=== PATIENT | male | born 1935 | race Caucasian/White ===

== ENCOUNTER 2023-02-06 03:52 | Inpatient (IN) | payer BC ==
[2023-02-06 04:02] VITALS: BMI 28.8
[2023-02-06] MEDS ORDERED: ACETAMINOPHEN 1000 MG/100 ML BAG IVPB ONE (04:54)
[2023-02-06] MEDS ORDERED: ACETAMINOPHEN INJECTION 100 ML IVPB ONE (05:14)
[2023-02-06 06:12] LABS: BASO % 0.6 % (0-2.0); HEMATOCRIT 27.9 % (35.4-49); HEMOGLOBIN 9.5 GM/dL (11.7-16.9); LYMPH % 8.1 % (8-40); MCH 34.5 pg (25.7-33.7); MCHC 34.1 g/dl (32.0-35.9); MEAN CELL VOLUME 101.1 fl (80-96); MEAN PLT VOLUME 9.6 fl (7.5-11.1); NEUT % 78.3 % (42.8-82.8); PLATELET COUNT 133 10^3/uL (134-434); RBC 2.76 M/mm3 (4.00-5.60); RDW 24.7 % (11.9-15.9); WHITE BLOOD COUNT 6.9 K/mm3 (4.0-10.0)
[2023-02-06 06:26] LABS: INR 1.53 (0.83-1.09); PROTHROMBIN TIME (PATIENT) 17.7 SEC (9.7-13.0)
[2023-02-06 06:28] LABS: CHLORIDE 104 mmol/L (98-107); POTASSIUM 4.5 mmol/L (3.5-5.1); SODIUM 139 mmol/L (136-145)
[2023-02-06 06:29] LABS: ACTIVATED PTT 36.7 SECONDS (25.2-36.5)
[2023-02-06 06:30] LABS: ANION GAP 6 MMOL/L (8-16); BLOOD UREA NITROGEN 33.3 mg/dL (7-18); CALCIUM 8.5 mg/dL (8.5-10.1); CO2 29 mmol/L (21-32); GLUCOSE,RANDOM 107 mg/dL (74-106)
[2023-02-06 06:33] LABS: CREATININE 1.3 mg/dL (0.55-1.3); SGOT/AST 26 U/L (15-37)
[2023-02-06 06:36] LABS: ALK PHOS 252 U/L (45-117); BILIRUBIN,TOTAL 1.4 mg/dL (0.2-1); SGPT/ALT 18 U/L (13-61); TOT PROT 7.6 g/dl (6.4-8.2)
[2023-02-06] MEDS ORDERED: VANCOMYCIN 1 GM in D5W (PRE-DOCKED) 1,000 MG/250 ML (RESTRICTED TO ID ONLY IVPB ONE (07:09)
[2023-02-06] MEDS ORDERED: PIPERACILLIN/TAZOB 4.5 GM 4.5 GM in DEXTROSE 5%-WATER 100 ML IVPB ONE (07:10)
[2023-02-06] MEDS ORDERED: VANCOMYCIN/WATER FOR INJ (PEG) 1,000 MG/200 ML BAG IVPB ONE (08:18)
[2023-02-06] MEDS ORDERED: PIPERACILLIN/TAZOB 4.5 GM 4.5 GM/100 ML BAG IVPB ONE (08:18)
[2023-02-06 08:35] LABS: PH,URINE 7.5 (5.0-8.0); URINE APPEARANCE TURBID; URINE BILIRUBIN NEGATIVE (NEGATIVE); URINE COLOR RED; URINE GLUCOSE (UA) NEGATIVE (NEGATIVE); URINE KETONE NEGATIVE (NEGATIVE); URINE PROTEIN 3+ (NEGATIVE)
[2023-02-06 08:36] LABS: URINE BACTERIA 2+ /uL (0-1359); URINE LEUK ESTERASE 3+ (NEGATIVE); URINE NITRITE NEGATIVE (NEGATIVE); URINE RBC 100-200 /uL (0-23.9); URINE WBC 50-100 /uL (0-25.8)
[2023-02-06] MEDS ORDERED: LIDOCAINE HCL 2% JELLY 10 ML CARTRIDGE UR ONE (08:52)
[2023-02-06 08:54] LABS: ANISOCYTOSIS 1+; MACROCYTOSIS 1+
[2023-02-06] MEDS ORDERED: LIDOCAINE HCL 2% JELLY 10 ML CARTRIDGE ONE (08:56)
[2023-02-06 09:59] LABS: BASO % 0.5 % (0-2.0); EOS % 1.2 % (0-4.5); HEMATOCRIT 26.8 % (35.4-49); HEMOGLOBIN 9.1 GM/dL (11.7-16.9); LYMPH % 10.8 % (8-40); MCH 34.4 pg (25.7-33.7); MCHC 33.9 g/dl (32.0-35.9); MEAN CELL VOLUME 101.5 fl (80-96); MEAN PLT VOLUME 8.7 fl (7.5-11.1); MONO % 13.3 % (3.8-10.2); NEUT % 74.2 % (42.8-82.8); PLATELET COUNT 121 10^3/uL (134-434); RBC 2.64 M/mm3 (4.00-5.60); RDW 24.7 % (11.9-15.9)
[2023-02-06] MEDS ORDERED: LACTATED RINGERS SOLUTION 1000 ML INFUS.BAG IV ONE (10:03)
[2023-02-06] MEDS: LEVOTHYROXINE NA 88 MCG TABLET (FP) PO SCH (10:49)
[2023-02-06] MEDS: metoPROLOL SUCCINATE 25 MG TAB.SR.24H (FP) PO SCH (10:49)
[2023-02-06 11:28] LABS: CHOLESTEROL 97 mg/dL (50-200)
[2023-02-06 11:30] LABS: LDL CHOLESTEROL (ONLY SJRH) 50 mg/dL (5-100)
[2023-02-06 11:31] LABS: HDL CHOLESTEROL 44 mg/dL (40-60)
[2023-02-06 11:32] LABS: N-TERMINAL BNP 5357.8 pg/ml (5-450)
[2023-02-06] MEDS ORDERED: LACTATED RINGERS SOLUTION 1,000 ML/1,000 ML INFUS.BAG IV SCH (11:59)
[2023-02-06] MEDS: ALLOPURINOL 300 MG TABLET (FP) PO SCH (13:21)
[2023-02-06] MEDS: GABAPENTIN 100 MG CAPSULE PO SCH ×2 (14:35→21:16)
[2023-02-06] MEDS ORDERED: CEFEPIME 2 GM in DEXTROSE 5%-WATER - 100 ML IVPB SCH (18:00)
[2023-02-06] MEDS: PIPERACILLIN/TAZOB 4.5 GM 4.5 GM in DEXTROSE 5%-WATER 100 ML IVPB SCH (18:31)
[2023-02-06] MEDS ORDERED: VANCOMYCIN HCL 1,500 MG in DEXTROSE 5%-WATER - 250 ML IVPB SCH (22:00)
[2023-02-06] MEDS ORDERED: VANCOMYCIN PREMIX 1.5 GM 1,500 MG/300 ML BAG IVPB SCH (22:00)
[2023-02-06] MEDS ORDERED: ATORVASTATIN CA 10 MG TABLET (FP) PO SCH (22:00)
[2023-02-07] MEDS: PIPERACILLIN/TAZOB 4.5 GM 4.5 GM in DEXTROSE 5%-WATER 100 ML IVPB SCH ×3 (02:03→19:02)
[2023-02-07] MEDS: PANTOPRAZOLE 40 MG TABLET PO SCH ×2 (02:03→09:18)
[2023-02-07] MEDS ORDERED: ACETAMINOPHEN 1000 MG/100 ML BAG IVPB ONE ×2 (05:54→13:30)
[2023-02-07] MEDS ORDERED: LIDOCAINE HCL 2% JELLY 10 ML CARTRIDGE UR ONE (06:34)
[2023-02-07] MEDS: LEVOTHYROXINE NA 88 MCG TABLET (FP) PO SCH (07:00)
[2023-02-07] MEDS: GABAPENTIN 100 MG CAPSULE PO SCH ×3 (07:00→22:17)
[2023-02-07] MEDS ORDERED: morphine CARPU-JECT 2 MG/1 ML DISP.SYRIN IM ONE (08:03)
[2023-02-07] MEDS: metoPROLOL SUCCINATE 25 MG TAB.SR.24H (FP) PO SCH (09:19)
[2023-02-07] MEDS: ALLOPURINOL 300 MG TABLET (FP) PO SCH (09:22)
[2023-02-07] MEDS ORDERED: CEFEPIME 2 GM in DEXTROSE 5%-WATER - 100 ML IVPB SCH (10:00)
[2023-02-07] MEDS ORDERED: LIDOCAINE HCL 2% JELLY 6 ML TP ONE (10:00)
[2023-02-07] MEDS ORDERED: ROCURONIUM BROMIDE 50 MG/5 ML SYRINGE ONE (12:10)
[2023-02-07] MEDS ORDERED: PROPOFOL 20 ML ONE (12:10)
[2023-02-07] MEDS ORDERED: SUCCINYLCHOLINE CHLORIDE 200 MG/10 ML SYRINGE ONE (12:10)
[2023-02-07] MEDS ORDERED: LIDOCAINE HCL/PF 2% SDV 5ML VIAL ONE (12:10)
[2023-02-07 12:20] LABS: BASO % 0.3 % (0-2.0); EOS % 0.4 % (0-4.5); HEMATOCRIT 25.3 % (35.4-49); HEMOGLOBIN 8.5 GM/dL (11.7-16.9); MCH 34.5 pg (25.7-33.7); MCHC 33.7 g/dl (32.0-35.9); MEAN CELL VOLUME 102.1 fl (80-96); MEAN PLT VOLUME 8.3 fl (7.5-11.1); MONO % 12.4 % (3.8-10.2); NEUT % 78.9 % (42.8-82.8); PLATELET COUNT 113 10^3/uL (134-434); RBC 2.48 M/mm3 (4.00-5.60); RDW 24.2 % (11.9-15.9)
[2023-02-07 12:46] LABS: POTASSIUM 4.1 mmol/L (3.5-5.1)
[2023-02-07 12:53] LABS: ALBUMIN 2.8 g/dl (3.4-5.0); BLOOD UREA NITROGEN 40.5 mg/dL (7-18); CALCIUM 8.1 mg/dL (8.5-10.1); MAGNESIUM 2.1 mg/dL (1.8-2.4)
[2023-02-07 12:56] LABS: CREATININE 2.2 mg/dL (0.55-1.3); PHOSPHOROUS 4.2 mg/dL (2.5-4.9)
[2023-02-07 12:58] LABS: BILIRUBIN,TOTAL 1.7 mg/dL (0.2-1); TOT PROT 7.1 g/dl (6.4-8.2)
[2023-02-07] MEDS ORDERED: ONDANSETRON 4 MG/2 ML VIAL IVPUSH PRN (13:29)
[2023-02-07] MEDS ORDERED: ACETAMINOPHEN INJECTION 100 ML IVPB ONE (14:37)
[2023-02-07] MEDS: LACTATED RINGERS SOLUTION 1,000 ML IV SCH (15:07)
[2023-02-07] MEDS ORDERED: FUROSEMIDE 40 MG/4 ML INJECTABLE VIAL ONE (15:44)
[2023-02-07] MEDS ORDERED: FUROSEMIDE 10 MG/1 ML VIAL (4 ML VIAL) IVPUSH ONE (15:50)
[2023-02-07] MEDS ORDERED: FUROSEMIDE 40 MG/4 ML INJECTABLE VIAL IVPUSH ONE (15:53)
[2023-02-07 16:05] LABS: HEMATOCRIT 22.1 % (35.4-49); HEMOGLOBIN 7.1 GM/dL (11.7-16.9); MCH 33.3 pg (25.7-33.7); MCHC 32.3 g/dl (32.0-35.9); MEAN PLT VOLUME 8.1 fl (7.5-11.1); PLATELET COUNT 111 10^3/uL (134-434); RBC 2.14 M/mm3 (4.00-5.60); RDW 24.8 % (11.9-15.9); WHITE BLOOD COUNT 8.9 K/mm3 (4.0-10.0)
[2023-02-07] MEDS ORDERED: ACETAMINOPHEN 325 MG TABLET (FP) ONE (20:21)
[2023-02-07 21:58] LABS: HEMATOCRIT 22.6 % (35.4-49); HEMOGLOBIN 7.5 GM/dL (11.7-16.9); MCH 33.7 pg (25.7-33.7); MCHC 33.3 g/dl (32.0-35.9); MEAN CELL VOLUME 101.2 fl (80-96); PLATELET COUNT 99 10^3/uL (134-434); RBC 2.24 M/mm3 (4.00-5.60); RDW 24.1 % (11.9-15.9); WHITE BLOOD COUNT 6.8 K/mm3 (4.0-10.0)
[2023-02-07] MEDS: ATORVASTATIN CA 10 MG TABLET (FP) PO SCH (22:17)
[2023-02-08] MEDS: PIPERACILLIN/TAZOB 4.5 GM 4.5 GM in DEXTROSE 5%-WATER 100 ML IVPB SCH ×2 (01:21→09:38)
[2023-02-08] MEDS: GABAPENTIN 100 MG CAPSULE PO SCH ×3 (05:40→22:11)
[2023-02-08] MEDS: LEVOTHYROXINE NA 88 MCG TABLET (FP) PO SCH (06:01)
[2023-02-08 08:14] LABS: BASO % 0.5 % (0-2.0); EOS % 2.2 % (0-4.5); HEMATOCRIT 26.3 % (35.4-49); HEMOGLOBIN 8.9 GM/dL (11.7-16.9); LYMPH % 14.6 % (8-40); MCHC 33.9 g/dl (32.0-35.9); MEAN CELL VOLUME 100.4 fl (80-96); MEAN PLT VOLUME 9.5 fl (7.5-11.1); MONO % 13.9 % (3.8-10.2); NEUT % 68.8 % (42.8-82.8); PLATELET COUNT 107 10^3/uL (134-434); RBC 2.62 M/mm3 (4.00-5.60); RDW 24.7 % (11.9-15.9); WHITE BLOOD COUNT 5.9 K/mm3 (4.0-10.0)
[2023-02-08] MEDS ORDERED: ACETAMINOPHEN 1000 MG/100 ML BAG IVPB PRN (08:19)
[2023-02-08 08:23] LABS: POTASSIUM 4.2 mmol/L (3.5-5.1)
[2023-02-08 08:26] LABS: ALBUMIN 2.4 g/dl (3.4-5.0); CALCIUM 7.8 mg/dL (8.5-10.1)
[2023-02-08 08:27] LABS: BLOOD UREA NITROGEN 45.1 mg/dL (7-18); MAGNESIUM 1.9 mg/dL (1.8-2.4)
[2023-02-08 08:29] LABS: CREATININE 2.5 mg/dL (0.55-1.3)
[2023-02-08 08:31] LABS: BILIRUBIN,TOTAL 2.3 mg/dL (0.2-1); TOT PROT 6.6 g/dl (6.4-8.2)
[2023-02-08] MEDS: ACETAMINOPHEN 500 MG TABLET (FP) PO PRN ×2 (09:35→23:36)
[2023-02-08] MEDS: metoPROLOL SUCCINATE 25 MG TAB.SR.24H (FP) PO SCH (09:37)
[2023-02-08] MEDS: ALLOPURINOL 300 MG TABLET (FP) PO SCH (09:37)
[2023-02-08] MEDS: PANTOPRAZOLE 40 MG TABLET PO SCH (09:37)
[2023-02-08] MEDS: LACTATED RINGERS SOLUTION 1,000 ML IV SCH (13:52)
[2023-02-08] MEDS: PIPERACILLIN/TAZOB 2.25 GM 2.25 GM in DEXTROSE 5%-WATER - 50 ML IVPB SCH (17:32)
[2023-02-08 18:45] LABS: BASO % 0.5 % (0-2.0); EOS % 3.4 % (0-4.5); HEMATOCRIT 23.8 % (35.4-49); HEMOGLOBIN 7.8 GM/dL (11.7-16.9); LYMPH % 12.9 % (8-40); MCH 33.1 pg (25.7-33.7); MCHC 32.7 g/dl (32.0-35.9); MEAN CELL VOLUME 101.1 fl (80-96); MEAN PLT VOLUME 8.4 fl (7.5-11.1); NEUT % 73.2 % (42.8-82.8); PLATELET COUNT 112 10^3/uL (134-434); RBC 2.36 M/mm3 (4.00-5.60); RDW 24.9 % (11.9-15.9); WHITE BLOOD COUNT 5.3 K/mm3 (4.0-10.0)
[2023-02-08] MEDS: ATORVASTATIN CA 10 MG TABLET (FP) PO SCH (22:11)
[2023-02-09] MEDS: PIPERACILLIN/TAZOB 2.25 GM 2.25 GM in DEXTROSE 5%-WATER - 50 ML IVPB SCH ×3 (01:16→17:43)
[2023-02-09] MEDS: LEVOTHYROXINE NA 88 MCG TABLET (FP) PO SCH (06:30)
[2023-02-09] MEDS: GABAPENTIN 100 MG CAPSULE PO SCH ×3 (06:30→21:32)
[2023-02-09 08:58] LABS: BASO % 0.9 % (0-2.0); EOS % 4.5 % (0-4.5); HEMATOCRIT 21.8 % (35.4-49); HEMOGLOBIN 7.2 GM/dL (11.7-16.9); LYMPH % 21.1 % (8-40); MCH 32.6 pg (25.7-33.7); MCHC 32.8 g/dl (32.0-35.9); MEAN CELL VOLUME 99.3 fl (80-96); MEAN PLT VOLUME 8.7 fl (7.5-11.1); MONO % 10.4 % (3.8-10.2); NEUT % 63.1 % (42.8-82.8); PLATELET COUNT 108 10^3/uL (134-434); RDW 24.3 % (11.9-15.9); WHITE BLOOD COUNT 3.9 K/mm3 (4.0-10.0)
[2023-02-09 09:07] LABS: POTASSIUM 3.8 mmol/L (3.5-5.1)
[2023-02-09 09:10] LABS: ALBUMIN 2.4 g/dl (3.4-5.0)
[2023-02-09 09:12] LABS: BLOOD UREA NITROGEN 45.3 mg/dL (7-18); MAGNESIUM 2.1 mg/dL (1.8-2.4)
[2023-02-09 09:13] LABS: CREATININE 2.1 mg/dL (0.55-1.3)
[2023-02-09 09:15] LABS: BILIRUBIN,TOTAL 0.9 mg/dL (0.2-1); TOT PROT 6.3 g/dl (6.4-8.2)
[2023-02-09 10:06] LABS: ANISOCYTOSIS 1+; MACROCYTOSIS 1+
[2023-02-09] MEDS ORDERED: FUROSEMIDE 40 MG/4 ML INJECTABLE VIAL IVPUSH ONE (10:31)
[2023-02-09] MEDS: PANTOPRAZOLE 40 MG TABLET PO SCH (11:23)
[2023-02-09] MEDS: ALLOPURINOL 300 MG TABLET (FP) PO SCH (11:25)
[2023-02-09] MEDS: metoPROLOL SUCCINATE 25 MG TAB.SR.24H (FP) PO SCH (11:38)
[2023-02-09] MEDS: ACETAMINOPHEN 500 MG TABLET (FP) PO PRN ×2 (13:16→21:33)
[2023-02-09] MEDS: LACTATED RINGERS SOLUTION 1,000 ML IV SCH (15:57)
[2023-02-09] MEDS: oxyCODONE HCL 5 MG TABLET PO PRN (18:25)
[2023-02-09] MEDS: ATORVASTATIN CA 10 MG TABLET (FP) PO SCH (21:32)
[2023-02-09] MEDS: DOCUSATE SODIUM 100 MG CAPSULE (FP) PO SCH (21:32)
[2023-02-10] MEDS: oxyCODONE HCL 5 MG TABLET PO PRN ×2 (00:27→16:25)
[2023-02-10] MEDS: PIPERACILLIN/TAZOB 2.25 GM 2.25 GM in DEXTROSE 5%-WATER - 50 ML IVPB SCH ×3 (02:36→18:20)
[2023-02-10] MEDS: ACETAMINOPHEN 500 MG TABLET (FP) PO PRN (05:19)
[2023-02-10] MEDS: DOCUSATE SODIUM 100 MG CAPSULE (FP) PO SCH ×3 (05:19→22:19)
[2023-02-10] MEDS: GABAPENTIN 100 MG CAPSULE PO SCH ×3 (05:19→22:20)
[2023-02-10] MEDS: LEVOTHYROXINE NA 88 MCG TABLET (FP) PO SCH (05:59)
[2023-02-10 07:46] LABS: BASO % 1.2 % (0-2.0); EOS % 5.3 % (0-4.5); HEMATOCRIT 25.4 % (35.4-49); HEMOGLOBIN 8.8 GM/dL (11.7-16.9); LYMPH % 25.5 % (8-40); MCH 33.8 pg (25.7-33.7); MCHC 34.6 g/dl (32.0-35.9); MEAN CELL VOLUME 97.7 fl (80-96); MEAN PLT VOLUME 8.8 fl (7.5-11.1); MONO % 11.6 % (3.8-10.2); NEUT % 56.4 % (42.8-82.8); PLATELET COUNT 116 10^3/uL (134-434); WHITE BLOOD COUNT 3.6 K/mm3 (4.0-10.0)
[2023-02-10 08:08] LABS: POTASSIUM 3.4 mmol/L (3.5-5.1)
[2023-02-10 08:10] LABS: ALBUMIN 2.7 g/dl (3.4-5.0); BLOOD UREA NITROGEN 42.8 mg/dL (7-18); CALCIUM 8.1 mg/dL (8.5-10.1)
[2023-02-10 08:13] LABS: CREATININE 1.7 mg/dL (0.55-1.3)
[2023-02-10 08:15] LABS: BILIRUBIN,TOTAL 1.1 mg/dL (0.2-1)
[2023-02-10] MEDS: PANTOPRAZOLE 40 MG TABLET PO SCH (09:22)
[2023-02-10] MEDS: metoPROLOL SUCCINATE 25 MG TAB.SR.24H (FP) PO SCH (09:23)
[2023-02-10] MEDS: ALLOPURINOL 300 MG TABLET (FP) PO SCH (10:21)
[2023-02-10] MEDS ORDERED: POTASSIUM CHLORIDE ORAL LIQUID 20 MEQ/15 ML PO ONE (13:45)
[2023-02-10] MEDS: ATORVASTATIN CA 10 MG TABLET (FP) PO SCH (22:19)
[2023-02-11] MEDS: oxyCODONE HCL 5 MG TABLET PO PRN ×3 (00:57→22:01)
[2023-02-11] MEDS: PIPERACILLIN/TAZOB 2.25 GM 2.25 GM in DEXTROSE 5%-WATER - 50 ML IVPB SCH ×3 (02:12→17:21)
[2023-02-11] MEDS: LEVOTHYROXINE NA 88 MCG TABLET (FP) PO SCH (06:17)
[2023-02-11] MEDS: DOCUSATE SODIUM 100 MG CAPSULE (FP) PO SCH ×3 (06:17→22:02)
[2023-02-11] MEDS: GABAPENTIN 100 MG CAPSULE PO SCH ×3 (06:17→22:01)
[2023-02-11 06:52] LABS: BASO % 1.4 % (0-2.0); EOS % 3.8 % (0-4.5); HEMATOCRIT 24.4 % (35.4-49); HEMOGLOBIN 8.4 GM/dL (11.7-16.9); LYMPH % 26.7 % (8-40); MCH 33.7 pg (25.7-33.7); MCHC 34.3 g/dl (32.0-35.9); MEAN CELL VOLUME 98.3 fl (80-96); MEAN PLT VOLUME 8.6 fl (7.5-11.1); MONO % 11.7 % (3.8-10.2); NEUT % 56.4 % (42.8-82.8); PLATELET COUNT 128 10^3/uL (134-434); RBC 2.48 M/mm3 (4.00-5.60); RDW 23.3 % (11.9-15.9)
[2023-02-11] MEDS: ALLOPURINOL 300 MG TABLET (FP) PO SCH (10:24)
[2023-02-11] MEDS: metoPROLOL SUCCINATE 25 MG TAB.SR.24H (FP) PO SCH (10:24)
[2023-02-11] MEDS: PANTOPRAZOLE 40 MG TABLET PO SCH (10:24)
[2023-02-11] MEDS: POLYETHYLENE GLYCOL (HEALTHYLAX) 3350 17 GM PACKET PO SCH (22:02)
[2023-02-11] MEDS: TAMSULOSIN HCL 0.4 MG CAP PO SCH (22:02)
[2023-02-11] MEDS: ATORVASTATIN CA 10 MG TABLET (FP) PO SCH (22:02)
[2023-02-12] MEDS: PIPERACILLIN/TAZOB 2.25 GM 2.25 GM in DEXTROSE 5%-WATER - 50 ML IVPB SCH ×2 (01:28→09:54)
[2023-02-12] MEDS: DOCUSATE SODIUM 100 MG CAPSULE (FP) PO SCH ×3 (06:44→21:04)
[2023-02-12] MEDS: GABAPENTIN 100 MG CAPSULE PO SCH ×3 (06:44→21:04)
[2023-02-12] MEDS: LEVOTHYROXINE NA 88 MCG TABLET (FP) PO SCH (06:44)
[2023-02-12] MEDS: TAMSULOSIN HCL 0.4 MG CAP PO SCH ×2 (09:45→21:04)
[2023-02-12] MEDS: metoPROLOL SUCCINATE 25 MG TAB.SR.24H (FP) PO SCH (09:45)
[2023-02-12] MEDS: PANTOPRAZOLE 40 MG TABLET PO SCH (09:46)
[2023-02-12] MEDS: POLYETHYLENE GLYCOL (HEALTHYLAX) 3350 17 GM PACKET PO SCH ×2 (09:53→21:09)
[2023-02-12] MEDS: ALLOPURINOL 300 MG TABLET (FP) PO SCH (09:54)
[2023-02-12] MEDS: oxyCODONE HCL 5 MG TABLET PO PRN ×2 (10:49→21:05)
[2023-02-12] MEDS: ATORVASTATIN CA 10 MG TABLET (FP) PO SCH (21:04)
[2023-02-13] MEDS: LEVOTHYROXINE NA 88 MCG TABLET (FP) PO SCH (06:24)
[2023-02-13] MEDS: GABAPENTIN 100 MG CAPSULE PO SCH ×3 (06:24→21:45)
[2023-02-13] MEDS: DOCUSATE SODIUM 100 MG CAPSULE (FP) PO SCH ×3 (06:24→21:45)
[2023-02-13] MEDS: oxyCODONE HCL 5 MG TABLET PO PRN (06:26)
[2023-02-13 06:42] LABS: BASO % 1.2 % (0-2.0); EOS % 4.2 % (0-4.5); HEMATOCRIT 22.9 % (35.4-49); HEMOGLOBIN 7.8 GM/dL (11.7-16.9); LYMPH % 22.7 % (8-40); MCHC 33.9 g/dl (32.0-35.9); MEAN CELL VOLUME 100.2 fl (80-96); MEAN PLT VOLUME 8.9 fl (7.5-11.1); MONO % 13.4 % (3.8-10.2); NEUT % 58.5 % (42.8-82.8); PLATELET COUNT 134 10^3/uL (134-434); RBC 2.29 M/mm3 (4.00-5.60); RDW 23.2 % (11.9-15.9); WHITE BLOOD COUNT 3.9 K/mm3 (4.0-10.0)
[2023-02-13 06:52] LABS: INR 1.59 (0.83-1.09); PROTHROMBIN TIME (PATIENT) 18.4 SEC (9.7-13.0)
[2023-02-13 06:57] LABS: POTASSIUM 4.1 mmol/L (3.5-5.1)
[2023-02-13 07:04] LABS: ALBUMIN 2.5 g/dl (3.4-5.0); BLOOD UREA NITROGEN 26.1 mg/dL (7-18); CALCIUM 8.2 mg/dL (8.5-10.1); MAGNESIUM 1.7 mg/dL (1.8-2.4)
[2023-02-13 07:07] LABS: CREATININE 1.1 mg/dL (0.55-1.3)
[2023-02-13 07:09] LABS: BILIRUBIN,TOTAL 0.8 mg/dL (0.2-1); TOT PROT 6.7 g/dl (6.4-8.2)
[2023-02-13] MEDS: ALLOPURINOL 300 MG TABLET (FP) PO SCH (09:09)
[2023-02-13] MEDS: TAMSULOSIN HCL 0.4 MG CAP PO SCH ×2 (09:09→20:02)
[2023-02-13] MEDS: PANTOPRAZOLE 40 MG TABLET PO SCH (09:09)
[2023-02-13] MEDS: metoPROLOL SUCCINATE 25 MG TAB.SR.24H (FP) PO SCH (09:09)
[2023-02-13] MEDS: POLYETHYLENE GLYCOL (HEALTHYLAX) 3350 17 GM PACKET PO SCH ×2 (09:09→21:45)
[2023-02-13] MEDS: ENOXAPARIN NA (PORCINE) 40 MG/0.4 ML DISP.SYRIN SQ SCH (09:10)
[2023-02-13 11:47] LABS: ANISOCYTOSIS 2+; MACROCYTOSIS 0; OVALOCYTE 2+; TARGET CELLS 2+; TEAR DROP CELLS 1+
[2023-02-13] MEDS: ATORVASTATIN CA 10 MG TABLET (FP) PO SCH (21:45)
[2023-02-14] MEDS: DOCUSATE SODIUM 100 MG CAPSULE (FP) PO SCH ×3 (05:30→21:06)
[2023-02-14] MEDS: GABAPENTIN 100 MG CAPSULE PO SCH ×3 (05:30→21:06)
[2023-02-14] MEDS: LEVOTHYROXINE NA 88 MCG TABLET (FP) PO SCH (06:25)
[2023-02-14 08:18] LABS: BASO % 1.1 % (0-2.0); EOS % 4.1 % (0-4.5); HEMOGLOBIN 7.5 GM/dL (11.7-16.9); LYMPH % 23.8 % (8-40); MCH 33.7 pg (25.7-33.7); MCHC 33.9 g/dl (32.0-35.9); MEAN CELL VOLUME 99.4 fl (80-96); MEAN PLT VOLUME 8.8 fl (7.5-11.1); MONO % 11.6 % (3.8-10.2); NEUT % 59.4 % (42.8-82.8); PLATELET COUNT 130 10^3/uL (134-434); RBC 2.22 M/mm3 (4.00-5.60); RDW 23.3 % (11.9-15.9); WHITE BLOOD COUNT 3.8 K/mm3 (4.0-10.0)
[2023-02-14 08:25] LABS: INR 1.65 (0.83-1.09); PROTHROMBIN TIME (PATIENT) 19.1 SEC (9.7-13.0)
[2023-02-14] MEDS: TAMSULOSIN HCL 0.4 MG CAP PO SCH ×2 (08:32→21:06)
[2023-02-14] MEDS: oxyCODONE HCL 5 MG TABLET PO PRN ×2 (08:32→21:07)
[2023-02-14 08:51] LABS: POTASSIUM 4.3 mmol/L (3.5-5.1)
[2023-02-14 08:53] LABS: CALCIUM 7.9 mg/dL (8.5-10.1)
[2023-02-14 08:54] LABS: ALBUMIN 2.4 g/dl (3.4-5.0); BLOOD UREA NITROGEN 24.4 mg/dL (7-18); MAGNESIUM 1.7 mg/dL (1.8-2.4)
[2023-02-14 08:58] LABS: TOT PROT 6.5 g/dl (6.4-8.2)
[2023-02-14] MEDS: metoPROLOL SUCCINATE 25 MG TAB.SR.24H (FP) PO SCH (09:20)
[2023-02-14] MEDS: ALLOPURINOL 300 MG TABLET (FP) PO SCH (09:20)
[2023-02-14] MEDS: ENOXAPARIN NA (PORCINE) 40 MG/0.4 ML DISP.SYRIN SQ SCH (09:20)
[2023-02-14] MEDS: POLYETHYLENE GLYCOL (HEALTHYLAX) 3350 17 GM PACKET PO SCH ×2 (09:20→21:05)
[2023-02-14] MEDS: PANTOPRAZOLE 40 MG TABLET PO SCH (09:20)
[2023-02-14] MEDS: ACETAMINOPHEN 500 MG TABLET (FP) PO PRN ×2 (12:55→21:06)
[2023-02-14] MEDS: ATORVASTATIN CA 10 MG TABLET (FP) PO SCH (21:05)
[2023-02-15] MEDS: oxyCODONE HCL 5 MG TABLET PO PRN ×2 (02:51→23:15)
[2023-02-15] MEDS: GABAPENTIN 100 MG CAPSULE PO SCH ×3 (06:45→21:08)
[2023-02-15] MEDS: DOCUSATE SODIUM 100 MG CAPSULE (FP) PO SCH ×3 (06:45→21:08)
[2023-02-15] MEDS: LEVOTHYROXINE NA 88 MCG TABLET (FP) PO SCH (06:45)
[2023-02-15 07:32] LABS: EOS % 2.7 % (0-4.5); HEMATOCRIT 23.4 % (35.4-49); LYMPH % 20.9 % (8-40); MCH 33.5 pg (25.7-33.7); MCHC 34.2 g/dl (32.0-35.9); MEAN CELL VOLUME 97.9 fl (80-96); MEAN PLT VOLUME 8.8 fl (7.5-11.1); MONO % 12.5 % (3.8-10.2); NEUT % 62.9 % (42.8-82.8); PLATELET COUNT 131 10^3/uL (134-434); RBC 2.39 M/mm3 (4.00-5.60); RDW 23.5 % (11.9-15.9); WHITE BLOOD COUNT 4.5 K/mm3 (4.0-10.0)
[2023-02-15 07:35] LABS: INR 1.71 (0.83-1.09); PROTHROMBIN TIME (PATIENT) 19.7 SEC (9.7-13.0)
[2023-02-15 07:50] LABS: POTASSIUM 4.7 mmol/L (3.5-5.1)
[2023-02-15] MEDS: TAMSULOSIN HCL 0.4 MG CAP PO SCH ×2 (07:51→21:08)
[2023-02-15 07:57] LABS: ALBUMIN 2.5 g/dl (3.4-5.0); BLOOD UREA NITROGEN 26.9 mg/dL (7-18); MAGNESIUM 1.8 mg/dL (1.8-2.4)
[2023-02-15 08:01] LABS: BILIRUBIN,TOTAL 1.2 mg/dL (0.2-1)
[2023-02-15 08:02] LABS: TOT PROT 6.6 g/dl (6.4-8.2)
[2023-02-15] MEDS: PANTOPRAZOLE 40 MG TABLET PO SCH (09:19)
[2023-02-15] MEDS: metoPROLOL SUCCINATE 25 MG TAB.SR.24H (FP) PO SCH (09:19)
[2023-02-15] MEDS: ENOXAPARIN NA (PORCINE) 40 MG/0.4 ML DISP.SYRIN SQ SCH (09:19)
[2023-02-15] MEDS: ALLOPURINOL 300 MG TABLET (FP) PO SCH (09:19)
[2023-02-15] MEDS: POLYETHYLENE GLYCOL (HEALTHYLAX) 3350 17 GM PACKET PO SCH ×2 (09:19→21:08)
[2023-02-15] MEDS: ATORVASTATIN CA 10 MG TABLET (FP) PO SCH (21:08)
[2023-02-16] MEDS: GABAPENTIN 100 MG CAPSULE PO SCH ×3 (06:02→21:32)
[2023-02-16] MEDS: DOCUSATE SODIUM 100 MG CAPSULE (FP) PO SCH ×3 (06:02→21:32)
[2023-02-16] MEDS: LEVOTHYROXINE NA 88 MCG TABLET (FP) PO SCH (06:02)
[2023-02-16 06:32] LABS: BASO % 0.7 % (0-2.0); EOS % 2.3 % (0-4.5); HEMATOCRIT 24.9 % (35.4-49); HEMOGLOBIN 8.3 GM/dL (11.7-16.9); LYMPH % 21.5 % (8-40); MCHC 33.2 g/dl (32.0-35.9); MEAN CELL VOLUME 99.2 fl (80-96); MEAN PLT VOLUME 8.6 fl (7.5-11.1); MONO % 13.1 % (3.8-10.2); NEUT % 62.4 % (42.8-82.8); PLATELET COUNT 137 10^3/uL (134-434); RBC 2.51 M/mm3 (4.00-5.60); RDW 23.6 % (11.9-15.9); WHITE BLOOD COUNT 4.9 K/mm3 (4.0-10.0)
[2023-02-16 06:42] LABS: POTASSIUM 4.7 mmol/L (3.5-5.1)
[2023-02-16 06:45] LABS: CALCIUM 8.1 mg/dL (8.5-10.1)
[2023-02-16 06:46] LABS: ALBUMIN 2.5 g/dl (3.4-5.0); BLOOD UREA NITROGEN 23.8 mg/dL (7-18)
[2023-02-16 06:50] LABS: BILIRUBIN,TOTAL 1.1 mg/dL (0.2-1)
[2023-02-16 06:51] LABS: TOT PROT 6.7 g/dl (6.4-8.2)
[2023-02-16] MEDS: TAMSULOSIN HCL 0.4 MG CAP PO SCH ×2 (08:38→21:31)
[2023-02-16 08:39] LABS: ANISOCYTOSIS 2+; MACROCYTOSIS 2+
[2023-02-16] MEDS: BACITRACIN ZINC 15 GM TUBE TOPICAL OINTMENT TP SCH ×2 (09:16→21:32)
[2023-02-16] MEDS: ENOXAPARIN NA (PORCINE) 40 MG/0.4 ML DISP.SYRIN SQ SCH (09:17)
[2023-02-16] MEDS: ALLOPURINOL 300 MG TABLET (FP) PO SCH (09:17)
[2023-02-16] MEDS: PANTOPRAZOLE 40 MG TABLET PO SCH (09:17)
[2023-02-16] MEDS: metoPROLOL SUCCINATE 25 MG TAB.SR.24H (FP) PO SCH (09:18)
[2023-02-16] MEDS: POLYETHYLENE GLYCOL (HEALTHYLAX) 3350 17 GM PACKET PO SCH ×2 (09:19→21:57)
[2023-02-16] MEDS: oxyCODONE HCL 5 MG TABLET PO PRN ×2 (13:23→18:39)
[2023-02-16] MEDS: ATORVASTATIN CA 10 MG TABLET (FP) PO SCH (21:32)
[2023-02-16] MEDS: ACETAMINOPHEN 500 MG TABLET (FP) PO PRN (21:59)
[2023-02-17] MEDS: GABAPENTIN 100 MG CAPSULE PO SCH ×3 (05:53→21:01)
[2023-02-17] MEDS: DOCUSATE SODIUM 100 MG CAPSULE (FP) PO SCH ×3 (05:54→21:03)
[2023-02-17] MEDS: LEVOTHYROXINE NA 88 MCG TABLET (FP) PO SCH (06:03)
[2023-02-17] MEDS: oxyCODONE HCL 5 MG TABLET PO PRN ×3 (06:43→21:02)
[2023-02-17] MEDS: ALLOPURINOL 300 MG TABLET (FP) PO SCH (09:07)
[2023-02-17] MEDS: ENOXAPARIN NA (PORCINE) 40 MG/0.4 ML DISP.SYRIN SQ SCH (09:07)
[2023-02-17] MEDS: PANTOPRAZOLE 40 MG TABLET PO SCH (09:07)
[2023-02-17] MEDS: metoPROLOL SUCCINATE 25 MG TAB.SR.24H (FP) PO SCH (09:07)
[2023-02-17] MEDS: POLYETHYLENE GLYCOL (HEALTHYLAX) 3350 17 GM PACKET PO SCH ×2 (09:07→21:01)
[2023-02-17] MEDS: BACITRACIN ZINC 15 GM TUBE TOPICAL OINTMENT TP SCH ×2 (09:08→21:03)
[2023-02-17] MEDS: TAMSULOSIN HCL 0.4 MG CAP PO SCH ×2 (09:08→21:01)
[2023-02-17 10:53] LABS: BASO % 0.7 % (0-2.0); EOS % 1.7 % (0-4.5); HEMATOCRIT 25.7 % (35.4-49); HEMOGLOBIN 8.8 GM/dL (11.7-16.9); LYMPH % 10.6 % (8-40); MCH 33.6 pg (25.7-33.7); MCHC 34.1 g/dl (32.0-35.9); MEAN CELL VOLUME 98.6 fl (80-96); MONO % 8.8 % (3.8-10.2); NEUT % 78.2 % (42.8-82.8); PLATELET COUNT 144 10^3/uL (134-434); WHITE BLOOD COUNT 5.6 K/mm3 (4.0-10.0)
[2023-02-17 10:56] LABS: INR 1.78 (0.83-1.09); PROTHROMBIN TIME (PATIENT) 20.5 SEC (9.7-13.0)
[2023-02-17 11:03] LABS: ALBUMIN 2.6 g/dl (3.4-5.0); BLOOD UREA NITROGEN 25.3 mg/dL (7-18); CALCIUM 8.4 mg/dL (8.5-10.1)
[2023-02-17 11:08] LABS: BILIRUBIN,TOTAL 1.3 mg/dL (0.2-1)
[2023-02-17] MEDS: ACETAMINOPHEN 500 MG TABLET (FP) PO PRN (17:26)
[2023-02-17] MEDS: ATORVASTATIN CA 10 MG TABLET (FP) PO SCH (21:01)
[2023-02-18] MEDS ORDERED: SODIUM CHLORIDE 1,000 ML IV SCH (00:01)
[2023-02-18] MEDS: GABAPENTIN 100 MG CAPSULE PO SCH ×3 (05:31→21:26)
[2023-02-18] MEDS: DOCUSATE SODIUM 100 MG CAPSULE (FP) PO SCH ×3 (05:31→21:26)
[2023-02-18] MEDS: LEVOTHYROXINE NA 88 MCG TABLET (FP) PO SCH (06:18)
[2023-02-18] MEDS: oxyCODONE HCL 5 MG TABLET PO PRN (06:18)
[2023-02-18 06:54] LABS: BASO % 0.5 % (0-2.0); EOS % 0.6 % (0-4.5); HEMATOCRIT 23.5 % (35.4-49); HEMOGLOBIN 7.9 GM/dL (11.7-16.9); LYMPH % 8.4 % (8-40); MCH 33.5 pg (25.7-33.7); MCHC 33.8 g/dl (32.0-35.9); MEAN CELL VOLUME 99.1 fl (80-96); MEAN PLT VOLUME 9.1 fl (7.5-11.1); MONO % 10.7 % (3.8-10.2); NEUT % 79.8 % (42.8-82.8); PLATELET COUNT 131 10^3/uL (134-434); RBC 2.37 M/mm3 (4.00-5.60); RDW 22.4 % (11.9-15.9); WHITE BLOOD COUNT 7.4 K/mm3 (4.0-10.0)
[2023-02-18 07:17] LABS: POTASSIUM 4.6 mmol/L (3.5-5.1)
[2023-02-18 07:21] LABS: ALBUMIN 2.4 g/dl (3.4-5.0); BLOOD UREA NITROGEN 26.9 mg/dL (7-18); CALCIUM 7.9 mg/dL (8.5-10.1); MAGNESIUM 1.9 mg/dL (1.8-2.4)
[2023-02-18 07:24] LABS: CREATININE 1.4 mg/dL (0.55-1.3)
[2023-02-18 07:26] LABS: BILIRUBIN,TOTAL 1.2 mg/dL (0.2-1); TOT PROT 6.7 g/dl (6.4-8.2)
[2023-02-18 08:14] LABS: INR 1.77 (0.83-1.09); PROTHROMBIN TIME (PATIENT) 20.4 SEC (9.7-13.0)
[2023-02-18] MEDS: metoPROLOL SUCCINATE 25 MG TAB.SR.24H (FP) PO SCH (09:23)
[2023-02-18] MEDS: POLYETHYLENE GLYCOL (HEALTHYLAX) 3350 17 GM PACKET PO SCH ×2 (09:24→21:26)
[2023-02-18] MEDS: TAMSULOSIN HCL 0.4 MG CAP PO SCH ×2 (09:24→21:26)
[2023-02-18] MEDS: ALLOPURINOL 300 MG TABLET (FP) PO SCH (09:24)
[2023-02-18] MEDS: BACITRACIN ZINC 15 GM TUBE TOPICAL OINTMENT TP SCH ×2 (09:24→21:27)
[2023-02-18] MEDS: PANTOPRAZOLE 40 MG TABLET PO SCH (09:24)
[2023-02-18] MEDS ORDERED: MIDAZOLAM HCL 2 MG/2 ML SINGLE DOSE VIAL ONE (14:45)
[2023-02-18] MEDS ORDERED: FUROSEMIDE 40 MG/4 ML INJECTABLE VIAL IVPUSH ONE (18:20)
[2023-02-18] MEDS: ATORVASTATIN CA 10 MG TABLET (FP) PO SCH (21:27)
[2023-02-19] MEDS: LEVOTHYROXINE NA 88 MCG TABLET (FP) PO SCH (06:20)
[2023-02-19] MEDS: GABAPENTIN 100 MG CAPSULE PO SCH ×3 (06:20→22:20)
[2023-02-19] MEDS: DOCUSATE SODIUM 100 MG CAPSULE (FP) PO SCH ×3 (06:20→22:16)
[2023-02-19 06:37] LABS: BASO % 0.6 % (0-2.0); EOS % 0.3 % (0-4.5); HEMATOCRIT 21.7 % (35.4-49); HEMOGLOBIN 7.4 GM/dL (11.7-16.9); LYMPH % 11.6 % (8-40); MCH 33.4 pg (25.7-33.7); MCHC 33.9 g/dl (32.0-35.9); MEAN CELL VOLUME 98.7 fl (80-96); MEAN PLT VOLUME 8.5 fl (7.5-11.1); MONO % 15.8 % (3.8-10.2); NEUT % 71.7 % (42.8-82.8); PLATELET COUNT 149 10^3/uL (134-434); RDW 22.5 % (11.9-15.9); WHITE BLOOD COUNT 6.4 K/mm3 (4.0-10.0)
[2023-02-19 06:57] LABS: POTASSIUM 3.7 mmol/L (3.5-5.1)
[2023-02-19 06:58] LABS: ALBUMIN 2.2 g/dl (3.4-5.0); MAGNESIUM 1.8 mg/dL (1.8-2.4)
[2023-02-19 07:01] LABS: CREATININE 1.2 mg/dL (0.55-1.3)
[2023-02-19 07:02] LABS: BILIRUBIN,TOTAL 1.4 mg/dL (0.2-1)
[2023-02-19 07:03] LABS: TOT PROT 6.4 g/dl (6.4-8.2)
[2023-02-19] MEDS ORDERED: MAGNESIUM OXIDE 400 MG TABLET (FP) PO ONE (07:45)
[2023-02-19] MEDS: oxyCODONE HCL 5 MG TABLET PO PRN ×2 (08:57→22:06)
[2023-02-19] MEDS: TAMSULOSIN HCL 0.4 MG CAP PO SCH ×2 (08:57→22:08)
[2023-02-19] MEDS ORDERED: TORSEMIDE 20 MG TABLET (FP) PO SCH (10:00)
[2023-02-19] MEDS: POLYETHYLENE GLYCOL (HEALTHYLAX) 3350 17 GM PACKET PO SCH ×2 (10:00→22:16)
[2023-02-19] MEDS: metoPROLOL SUCCINATE 25 MG TAB.SR.24H (FP) PO SCH (10:00)
[2023-02-19] MEDS: PANTOPRAZOLE 40 MG TABLET PO SCH (10:00)
[2023-02-19] MEDS: ALLOPURINOL 300 MG TABLET (FP) PO SCH (10:00)
[2023-02-19] MEDS: BACITRACIN ZINC 15 GM TUBE TOPICAL OINTMENT TP SCH ×2 (10:01→22:16)
[2023-02-19] MEDS: APIXABAN 2.5 MG TABLET PO SCH ×2 (13:16→22:08)
[2023-02-19] MEDS: ACETAMINOPHEN 500 MG TABLET (FP) PO PRN (22:08)
[2023-02-19] MEDS: ATORVASTATIN CA 10 MG TABLET (FP) PO SCH (22:16)
[2023-02-20] MEDS: oxyCODONE HCL 5 MG TABLET PO PRN ×3 (06:04→21:55)
[2023-02-20] MEDS: ACETAMINOPHEN 500 MG TABLET (FP) PO PRN (06:05)
[2023-02-20] MEDS: LEVOTHYROXINE NA 88 MCG TABLET (FP) PO SCH (06:06)
[2023-02-20] MEDS: DOCUSATE SODIUM 100 MG CAPSULE (FP) PO SCH ×3 (06:06→21:54)
[2023-02-20] MEDS: GABAPENTIN 100 MG CAPSULE PO SCH ×3 (06:06→21:55)
[2023-02-20 07:24] LABS: BASO % 0.7 % (0-2.0); HEMATOCRIT 25.2 % (35.4-49); HEMOGLOBIN 8.6 GM/dL (11.7-16.9); LYMPH % 18.8 % (8-40); MCH 33.6 pg (25.7-33.7); MEAN CELL VOLUME 98.8 fl (80-96); MEAN PLT VOLUME 8.5 fl (7.5-11.1); MONO % 18.3 % (3.8-10.2); NEUT % 61.2 % (42.8-82.8); PLATELET COUNT 150 10^3/uL (134-434); RBC 2.55 M/mm3 (4.00-5.60); RDW 22.4 % (11.9-15.9); WHITE BLOOD COUNT 4.5 K/mm3 (4.0-10.0)
[2023-02-20 07:42] LABS: POTASSIUM 4.2 mmol/L (3.5-5.1)
[2023-02-20 07:46] LABS: ALBUMIN 2.5 g/dl (3.4-5.0); CALCIUM 8.6 mg/dL (8.5-10.1)
[2023-02-20 07:47] LABS: BLOOD UREA NITROGEN 28.6 mg/dL (7-18); MAGNESIUM 1.9 mg/dL (1.8-2.4)
[2023-02-20 07:50] LABS: CREATININE 1.3 mg/dL (0.55-1.3)
[2023-02-20 07:51] LABS: BILIRUBIN,TOTAL 1.2 mg/dL (0.2-1)
[2023-02-20] MEDS: TAMSULOSIN HCL 0.4 MG CAP PO SCH ×2 (10:11→21:55)
[2023-02-20] MEDS: BACITRACIN ZINC 15 GM TUBE TOPICAL OINTMENT TP SCH ×2 (10:12→22:00)
[2023-02-20] MEDS: APIXABAN 2.5 MG TABLET PO SCH ×2 (10:12→21:55)
[2023-02-20] MEDS: PANTOPRAZOLE 40 MG TABLET PO SCH (10:12)
[2023-02-20] MEDS: TORSEMIDE 20 MG TABLET (FP) PO SCH (10:12)
[2023-02-20] MEDS: POLYETHYLENE GLYCOL (HEALTHYLAX) 3350 17 GM PACKET PO SCH ×2 (10:13→21:54)
[2023-02-20] MEDS: metoPROLOL SUCCINATE 25 MG TAB.SR.24H (FP) PO SCH (10:42)
[2023-02-20] MEDS: ALLOPURINOL 300 MG TABLET (FP) PO SCH (10:43)
[2023-02-20 11:28] LABS: URINE COLOR DK YELLOW
[2023-02-20 11:29] LABS: PH,URINE 5.5 (5.0-8.0); URINE APPEARANCE TURBID; URINE BILIRUBIN 1+ (NEGATIVE); URINE GLUCOSE (UA) NEGATIVE (NEGATIVE); URINE KETONE NEGATIVE (NEGATIVE); URINE PROTEIN 300 (NEGATIVE)
[2023-02-20 11:30] LABS: URINE LEUK ESTERASE 3+ (NEGATIVE); URINE NITRITE NEGATIVE (NEGATIVE)
[2023-02-20] MEDS: CEFTRIAXONE 1 GM in DEXTROSE 5%-WATER - 50 ML IVPB SCH (15:05)
[2023-02-20 15:46] LABS: EPI CELLS >36 /uL (0-25.1); HYALINE CASTS 24 /uL (0-3.1); URINE BACTERIA 5962 /uL (0-1359); URINE WBC 35686 /uL (0-25.8)
[2023-02-20 15:51] LABS: URINE RBC 758 /uL (0-23.9)
[2023-02-20 15:52] LABS: YEAST NEGATIVE (NEGATIVE)
[2023-02-20] MEDS: ATORVASTATIN CA 10 MG TABLET (FP) PO SCH (21:55)
[2023-02-21] MEDS: LEVOTHYROXINE NA 88 MCG TABLET (FP) PO SCH ×2 (05:47→06:10)
[2023-02-21] MEDS: DOCUSATE SODIUM 100 MG CAPSULE (FP) PO SCH ×3 (05:47→22:28)
[2023-02-21] MEDS: GABAPENTIN 100 MG CAPSULE PO SCH ×3 (05:47→22:28)
[2023-02-21] MEDS: oxyCODONE HCL 5 MG TABLET PO PRN ×3 (05:47→22:41)
[2023-02-21] MEDS: TAMSULOSIN HCL 0.4 MG CAP PO SCH ×2 (08:32→22:28)
[2023-02-21] MEDS: CEFTRIAXONE 1 GM in DEXTROSE 5%-WATER - 50 ML IVPB SCH (10:55)
[2023-02-21] MEDS: BACITRACIN ZINC 15 GM TUBE TOPICAL OINTMENT TP SCH ×2 (10:55→22:28)
[2023-02-21] MEDS: PANTOPRAZOLE 40 MG TABLET PO SCH (10:56)
[2023-02-21] MEDS: metoPROLOL SUCCINATE 25 MG TAB.SR.24H (FP) PO SCH (10:56)
[2023-02-21] MEDS: ALLOPURINOL 300 MG TABLET (FP) PO SCH (10:56)
[2023-02-21] MEDS: POLYETHYLENE GLYCOL (HEALTHYLAX) 3350 17 GM PACKET PO SCH ×2 (10:56→22:28)
[2023-02-21] MEDS: TORSEMIDE 20 MG TABLET (FP) PO SCH (10:56)
[2023-02-21 11:58] LABS: BASO % 0.8 % (0-2.0); EOS % 1.8 % (0-4.5); HEMATOCRIT 22.9 % (35.4-49); HEMOGLOBIN 7.9 GM/dL (11.7-16.9); LYMPH % 16.3 % (8-40); MCH 33.8 pg (25.7-33.7); MCHC 34.5 g/dl (32.0-35.9); MEAN CELL VOLUME 97.9 fl (80-96); MEAN PLT VOLUME 8.6 fl (7.5-11.1); MONO % 16.3 % (3.8-10.2); NEUT % 64.8 % (42.8-82.8); PLATELET COUNT 149 10^3/uL (134-434); RBC 2.34 M/mm3 (4.00-5.60); RDW 22.2 % (11.9-15.9); WHITE BLOOD COUNT 4.3 K/mm3 (4.0-10.0)
[2023-02-21 12:15] LABS: POTASSIUM 3.8 mmol/L (3.5-5.1)
[2023-02-21 12:17] LABS: CALCIUM 8.2 mg/dL (8.5-10.1)
[2023-02-21 12:18] LABS: ALBUMIN 2.5 g/dl (3.4-5.0); BLOOD UREA NITROGEN 26.9 mg/dL (7-18); MAGNESIUM 1.9 mg/dL (1.8-2.4)
[2023-02-21 12:21] LABS: CREATININE 1.1 mg/dL (0.55-1.3)
[2023-02-21 12:22] LABS: TOT PROT 7.2 g/dl (6.4-8.2)
[2023-02-21 12:45] LABS: PLATELET ESTIMATE DECREASED
[2023-02-21] MEDS: ATORVASTATIN CA 10 MG TABLET (FP) PO SCH (22:28)
[2023-02-22] MEDS: oxyCODONE HCL 5 MG TABLET PO PRN ×3 (00:36→11:59)
[2023-02-22] MEDS: GABAPENTIN 100 MG CAPSULE PO SCH ×3 (05:55→22:20)
[2023-02-22] MEDS: DOCUSATE SODIUM 100 MG CAPSULE (FP) PO SCH ×3 (05:55→22:20)
[2023-02-22] MEDS: LEVOTHYROXINE NA 88 MCG TABLET (FP) PO SCH (05:59)
[2023-02-22] MEDS: TAMSULOSIN HCL 0.4 MG CAP PO SCH ×2 (09:29→22:20)
[2023-02-22] MEDS: BACITRACIN ZINC 15 GM TUBE TOPICAL OINTMENT TP SCH ×2 (09:30→22:22)
[2023-02-22] MEDS: POLYETHYLENE GLYCOL (HEALTHYLAX) 3350 17 GM PACKET PO SCH ×2 (09:40→22:22)
[2023-02-22] MEDS: CEFTRIAXONE 1 GM in DEXTROSE 5%-WATER - 50 ML IVPB SCH (09:40)
[2023-02-22] MEDS: ASPIRIN 81 MG CHEWABLE TABLETS PO SCH ×2 (09:40→09:48)
[2023-02-22] MEDS: TORSEMIDE 20 MG TABLET (FP) PO SCH (09:41)
[2023-02-22] MEDS: ALLOPURINOL 300 MG TABLET (FP) PO SCH (09:41)
[2023-02-22] MEDS: metoPROLOL SUCCINATE 25 MG TAB.SR.24H (FP) PO SCH (09:41)
[2023-02-22] MEDS: PANTOPRAZOLE 40 MG TABLET PO SCH (09:41)
[2023-02-22 10:00] LABS: EOS % 2.4 % (0-4.5); HEMATOCRIT 23.2 % (35.4-49); LYMPH % 19.9 % (8-40); MCH 33.7 pg (25.7-33.7); MCHC 34.4 g/dl (32.0-35.9); MEAN CELL VOLUME 97.8 fl (80-96); MEAN PLT VOLUME 8.2 fl (7.5-11.1); NEUT % 60.7 % (42.8-82.8); PLATELET COUNT 153 10^3/uL (134-434); RBC 2.37 M/mm3 (4.00-5.60); RDW 21.9 % (11.9-15.9)
[2023-02-22 10:41] LABS: POTASSIUM 3.7 mmol/L (3.5-5.1)
[2023-02-22 10:43] LABS: CALCIUM 8.2 mg/dL (8.5-10.1)
[2023-02-22 10:44] LABS: ALBUMIN 2.4 g/dl (3.4-5.0); BLOOD UREA NITROGEN 24.3 mg/dL (7-18); MAGNESIUM 1.6 mg/dL (1.8-2.4)
[2023-02-22 10:49] LABS: BILIRUBIN,TOTAL 0.9 mg/dL (0.2-1)
[2023-02-22] MEDS: ERTAPENEM SODIUM 1 GM in SODIUM CHLORIDE 50 ML IVPB SCH (12:00)
[2023-02-22] MEDS: ATORVASTATIN CA 10 MG TABLET (FP) PO SCH (22:20)
[2023-02-23] MEDS: oxyCODONE HCL 5 MG TABLET PO PRN ×2 (05:09→14:09)
[2023-02-23] MEDS: GABAPENTIN 100 MG CAPSULE PO SCH ×3 (05:10→21:37)
[2023-02-23] MEDS: DOCUSATE SODIUM 100 MG CAPSULE (FP) PO SCH ×2 (05:10→14:09)
[2023-02-23] MEDS: LEVOTHYROXINE NA 88 MCG TABLET (FP) PO SCH (08:23)
[2023-02-23 09:04] LABS: BASO % 1.1 % (0-2.0); EOS % 2.5 % (0-4.5); HEMATOCRIT 24.4 % (35.4-49); LYMPH % 19.4 % (8-40); MCH 32.7 pg (25.7-33.7); MCHC 32.8 g/dl (32.0-35.9); MEAN CELL VOLUME 99.8 fl (80-96); MEAN PLT VOLUME 8.8 fl (7.5-11.1); MONO % 12.1 % (3.8-10.2); NEUT % 64.9 % (42.8-82.8); PLATELET COUNT 163 10^3/uL (134-434); RBC 2.44 M/mm3 (4.00-5.60); RDW 21.5 % (11.9-15.9); WHITE BLOOD COUNT 4.3 K/mm3 (4.0-10.0)
[2023-02-23 09:29] LABS: POTASSIUM 3.9 mmol/L (3.5-5.1)
[2023-02-23 09:33] LABS: ALBUMIN 2.5 g/dl (3.4-5.0); BLOOD UREA NITROGEN 22.7 mg/dL (7-18)
[2023-02-23 09:34] LABS: CALCIUM 8.3 mg/dL (8.5-10.1); MAGNESIUM 1.7 mg/dL (1.8-2.4)
[2023-02-23 09:36] LABS: CREATININE 0.9 mg/dL (0.55-1.3)
[2023-02-23 09:38] LABS: BILIRUBIN,TOTAL 0.9 mg/dL (0.2-1); TOT PROT 7.2 g/dl (6.4-8.2)
[2023-02-23] MEDS: BACITRACIN ZINC 15 GM TUBE TOPICAL OINTMENT TP SCH ×2 (10:28→21:38)
[2023-02-23] MEDS: TAMSULOSIN HCL 0.4 MG CAP PO SCH ×2 (10:28→21:37)
[2023-02-23] MEDS: POLYETHYLENE GLYCOL (HEALTHYLAX) 3350 17 GM PACKET PO SCH ×2 (10:28→21:37)
[2023-02-23] MEDS: ERTAPENEM SODIUM 1 GM in SODIUM CHLORIDE 50 ML IVPB SCH (10:28)
[2023-02-23] MEDS: TORSEMIDE 20 MG TABLET (FP) PO SCH (10:29)
[2023-02-23] MEDS: ASPIRIN 81 MG CHEWABLE TABLETS PO SCH (10:29)
[2023-02-23] MEDS: ALLOPURINOL 300 MG TABLET (FP) PO SCH (10:29)
[2023-02-23] MEDS: metoPROLOL SUCCINATE 25 MG TAB.SR.24H (FP) PO SCH (10:29)
[2023-02-23] MEDS: PANTOPRAZOLE 40 MG TABLET PO SCH (10:29)
[2023-02-23] MEDS: ACETAMINOPHEN 500 MG TABLET (FP) PO PRN (10:29)
[2023-02-23] MEDS: ATORVASTATIN CA 10 MG TABLET (FP) PO SCH (21:37)
[2023-02-24] MEDS: DOCUSATE SODIUM 100 MG CAPSULE (FP) PO SCH ×5 (00:03→22:03)
[2023-02-24] MEDS: oxyCODONE HCL 5 MG TABLET PO PRN (03:27)
[2023-02-24] MEDS: GABAPENTIN 100 MG CAPSULE PO SCH ×3 (05:52→22:01)
[2023-02-24] MEDS: LEVOTHYROXINE NA 88 MCG TABLET (FP) PO SCH (06:35)
[2023-02-24 08:21] LABS: HEMOGLOBIN 7.9 GM/dL (11.7-16.9); MCH 33.3 pg (25.7-33.7); MCHC 34.2 g/dl (32.0-35.9); MEAN CELL VOLUME 97.5 fl (80-96); MEAN PLT VOLUME 7.8 fl (7.5-11.1); PLATELET COUNT 163 10^3/uL (134-434); RBC 2.36 M/mm3 (4.00-5.60); RDW 21.7 % (11.9-15.9)
[2023-02-24 08:39] LABS: POTASSIUM 3.5 mmol/L (3.5-5.1)
[2023-02-24 08:48] LABS: ALBUMIN 2.4 g/dl (3.4-5.0); BLOOD UREA NITROGEN 21.7 mg/dL (7-18); CALCIUM 8.1 mg/dL (8.5-10.1); MAGNESIUM 1.7 mg/dL (1.8-2.4)
[2023-02-24 08:51] LABS: CREATININE 0.8 mg/dL (0.55-1.3)
[2023-02-24 08:53] LABS: BILIRUBIN,TOTAL 0.9 mg/dL (0.2-1); TOT PROT 6.9 g/dl (6.4-8.2)
[2023-02-24] MEDS: TAMSULOSIN HCL 0.4 MG CAP PO SCH ×2 (09:33→21:50)
[2023-02-24] MEDS: ASPIRIN 81 MG CHEWABLE TABLETS PO SCH (09:33)
[2023-02-24] MEDS: TORSEMIDE 20 MG TABLET (FP) PO SCH (09:33)
[2023-02-24] MEDS: ALLOPURINOL 300 MG TABLET (FP) PO SCH (09:34)
[2023-02-24] MEDS: POLYETHYLENE GLYCOL (HEALTHYLAX) 3350 17 GM PACKET PO SCH ×2 (09:34→22:03)
[2023-02-24] MEDS: BACITRACIN ZINC 15 GM TUBE TOPICAL OINTMENT TP SCH ×2 (09:34→22:01)
[2023-02-24] MEDS: metoPROLOL SUCCINATE 25 MG TAB.SR.24H (FP) PO SCH (09:34)
[2023-02-24] MEDS: PANTOPRAZOLE 40 MG TABLET PO SCH (09:34)
[2023-02-24] MEDS: ERTAPENEM SODIUM 1 GM in SODIUM CHLORIDE 50 ML IVPB SCH (09:35)
[2023-02-24] MEDS ORDERED: MAGNESIUM OXIDE 400 MG TABLET (FP) PO ONE (09:39)
[2023-02-24 09:57] LABS: ANISOCYTOSIS 1+; MACROCYTOSIS 1+
[2023-02-24] MEDS: ATORVASTATIN CA 10 MG TABLET (FP) PO SCH (22:00)
[2023-02-24] MEDS ORDERED: DOXYCYCLINE INJECTION 100 MG in DEXTROSE 5%-WATER 100 ML IVPB SCH (22:00)
[2023-02-25] MEDS: oxyCODONE HCL 5 MG TABLET PO PRN ×2 (04:53→21:16)
[2023-02-25] MEDS: DOCUSATE SODIUM 100 MG CAPSULE (FP) PO SCH ×3 (05:17→21:15)
[2023-02-25] MEDS: GABAPENTIN 100 MG CAPSULE PO SCH ×3 (05:19→22:49)
[2023-02-25] MEDS: LEVOTHYROXINE NA 88 MCG TABLET (FP) PO SCH (06:17)
[2023-02-25 08:03] LABS: HEMATOCRIT 24.8 % (35.4-49); HEMOGLOBIN 8.1 GM/dL (11.7-16.9); MCH 32.5 pg (25.7-33.7); MCHC 32.7 g/dl (32.0-35.9); MEAN CELL VOLUME 99.2 fl (80-96); MEAN PLT VOLUME 8.5 fl (7.5-11.1); PLATELET COUNT 181 10^3/uL (134-434); RDW 22.1 % (11.9-15.9); WHITE BLOOD COUNT 4.5 K/mm3 (4.0-10.0)
[2023-02-25 08:20] LABS: POTASSIUM 3.6 mmol/L (3.5-5.1)
[2023-02-25 08:22] LABS: CALCIUM 8.3 mg/dL (8.5-10.1)
[2023-02-25 08:23] LABS: ALBUMIN 2.4 g/dl (3.4-5.0); BLOOD UREA NITROGEN 17.1 mg/dL (7-18); MAGNESIUM 1.7 mg/dL (1.8-2.4)
[2023-02-25 08:26] LABS: CREATININE 0.8 mg/dL (0.55-1.3)
[2023-02-25 08:28] LABS: BILIRUBIN,TOTAL 0.8 mg/dL (0.2-1); TOT PROT 6.9 g/dl (6.4-8.2)
[2023-02-25] MEDS: TORSEMIDE 20 MG TABLET (FP) PO SCH (09:25)
[2023-02-25] MEDS: ALLOPURINOL 300 MG TABLET (FP) PO SCH (09:25)
[2023-02-25] MEDS: DOXYCYCLINE HYCLATE 100 MG CAPSULE PO SCH ×2 (09:25→17:21)
[2023-02-25] MEDS: ASPIRIN 81 MG CHEWABLE TABLETS PO SCH (09:25)
[2023-02-25] MEDS: BACITRACIN ZINC 15 GM TUBE TOPICAL OINTMENT TP SCH ×2 (09:25→22:21)
[2023-02-25] MEDS: PANTOPRAZOLE 40 MG TABLET PO SCH (09:25)
[2023-02-25] MEDS: TAMSULOSIN HCL 0.4 MG CAP PO SCH ×2 (09:25→21:14)
[2023-02-25] MEDS: metoPROLOL SUCCINATE 25 MG TAB.SR.24H (FP) PO SCH (09:25)
[2023-02-25] MEDS: POLYETHYLENE GLYCOL (HEALTHYLAX) 3350 17 GM PACKET PO SCH ×2 (09:26→21:15)
[2023-02-25] MEDS ORDERED: MAGNESIUM OXIDE 400 MG TABLET (FP) PO ONE (09:43)
[2023-02-25 11:04] LABS: ANISOCYTOSIS 0; MACROCYTOSIS 1+
[2023-02-25] MEDS: ATORVASTATIN CA 10 MG TABLET (FP) PO SCH (21:15)
[2023-02-25] MEDS: ACETAMINOPHEN 500 MG TABLET (FP) PO PRN (21:15)
[2023-02-26] MEDS: GABAPENTIN 100 MG CAPSULE PO SCH ×2 (05:49→15:11)
[2023-02-26] MEDS: DOCUSATE SODIUM 100 MG CAPSULE (FP) PO SCH ×2 (05:50→15:11)
[2023-02-26] MEDS: LEVOTHYROXINE NA 88 MCG TABLET (FP) PO SCH (06:21)
[2023-02-26] MEDS: TAMSULOSIN HCL 0.4 MG CAP PO SCH (08:47)
[2023-02-26 09:20] LABS: HEMATOCRIT 24.3 % (35.4-49); HEMOGLOBIN 7.9 GM/dL (11.7-16.9); MCH 31.8 pg (25.7-33.7); MCHC 32.4 g/dl (32.0-35.9); MEAN CELL VOLUME 98.2 fl (80-96); MEAN PLT VOLUME 8.1 fl (7.5-11.1); PLATELET COUNT 180 10^3/uL (134-434); RBC 2.47 M/mm3 (4.00-5.60); RDW 22.2 % (11.9-15.9); WHITE BLOOD COUNT 5.5 K/mm3 (4.0-10.0)
[2023-02-26 09:43] LABS: POTASSIUM 3.7 mmol/L (3.5-5.1)
[2023-02-26 09:47] LABS: ALBUMIN 2.4 g/dl (3.4-5.0); BLOOD UREA NITROGEN 18.6 mg/dL (7-18); MAGNESIUM 1.8 mg/dL (1.8-2.4)
[2023-02-26 09:50] LABS: CREATININE 0.8 mg/dL (0.55-1.3)
[2023-02-26 09:52] LABS: BILIRUBIN,TOTAL 1.1 mg/dL (0.2-1); TOT PROT 6.8 g/dl (6.4-8.2)
[2023-02-26] MEDS: metoPROLOL SUCCINATE 25 MG TAB.SR.24H (FP) PO SCH (10:31)
[2023-02-26] MEDS: ALLOPURINOL 300 MG TABLET (FP) PO SCH (10:32)
[2023-02-26] MEDS: BACITRACIN ZINC 15 GM TUBE TOPICAL OINTMENT TP SCH (10:32)
[2023-02-26] MEDS: ASPIRIN 81 MG CHEWABLE TABLETS PO SCH (10:32)
[2023-02-26] MEDS: PANTOPRAZOLE 40 MG TABLET PO SCH (10:32)
[2023-02-26] MEDS: DOXYCYCLINE HYCLATE 100 MG CAPSULE PO SCH ×2 (10:32→18:26)
[2023-02-26] MEDS: TORSEMIDE 20 MG TABLET (FP) PO SCH (10:44)
[2023-02-26] MEDS: POLYETHYLENE GLYCOL (HEALTHYLAX) 3350 17 GM PACKET PO SCH (10:44)
[2023-02-26] MEDS: oxyCODONE HCL 5 MG TABLET PO PRN ×2 (11:12→18:26)
[2023-02-26 11:31] LABS: ANISOCYTOSIS 1+; MACROCYTOSIS 0; OVALOCYTE 2+; TEAR DROP CELLS 1+
[2023-02-26 15:43] VITALS: TEMP 98.7
[2023-02-26 15:46] VITALS: BP 112/47; PULSE 90; RESP 20
[2023-02-26] MEDS ORDERED: AMINO ACIDS/PROTEIN HYDROLYS 30 ML LIQUID.PKT PO SCH (17:30)
== END 2023-02-26 21:25 | DRG 854 ==
LOC: JER 03:52 → JERBED 09:07 → J4S 10:08 → J7W 02-19 15:38
PROVIDERS: ADMIT Internal Medicine; ATTEND Nurse Practitioner Family
PROC: 0T5B8ZZ Destruction of Bladder, Via Natural or Artificial Opening Endoscopic (ICD-10-PCS; 2023-02-07)
PROC: 30233N1 Transfusion of Nonautologous Red Blood Cells into Peripheral Vein, Percutaneous Approach (ICD-10-PCS; 2023-02-07)
PROC: 0VT08ZZ Resection of Prostate, Via Natural or Artificial Opening Endoscopic (ICD-10-PCS; principal; 2023-02-07 13:00)
DX: A41.9 Sepsis, unspecified organism (principal); D62 Acute posthemorrhagic anemia; I50.22 Chronic systolic (congestive) heart failure; N39.0 Urinary tract infection, site not specified; N17.9 Acute kidney failure, unspecified; J90 Pleural effusion, not elsewhere classified; N13.30 Unspecified hydronephrosis; E03.9 Hypothyroidism, unspecified; D46.9 Myelodysplastic syndrome, unspecified; C67.9 Malignant neoplasm of bladder, unspecified; I11.0 Hypertensive heart disease with heart failure; E78.5 Hyperlipidemia, unspecified; R31.0 Gross hematuria; I48.0 Paroxysmal atrial fibrillation; I27.20 Pulmonary hypertension, unspecified; I87.2 Venous insufficiency (chronic) (peripheral); E87.6 Hypokalemia; L89.616 Pressure-induced deep tissue damage of right heel
CPT/HCPCS: 36415; 36430; 36511; 71045-TC-FY; 74177-TC; 76604-TC; 80053; 80061; 81003; 82553; 83036; 83605; 83735; 83880; 84100; 84484; 85025; 85027; 85610; 85730; 86850; 86870; 86880; 86900; 86901; 86902; 86922; 87040; 87081; 87086; 87186; 87635; 88307-TC; 93005; 93010; 93306-TC; 94760; 97116-GP; 99285-25; C9803-CS; P9038; P9058; Q9967; U0003; U0005